=== PATIENT | female | born 1960 | race Caucasian/White ===

== ENCOUNTER 2020-09-18 09:00 | Emergency (ER) | payer OTHER, MEDICAID, SELFPAY ==
[2020-09-18] VITALS (11 sets, daily range): BP systolic 142–178; BP diastolic 66–77; PULSE 49–66; RESP 13–23; TEMP 36.6; O2SAT 95–98; BMI 33.3
[2020-09-18 09:45] LABS: Add Manual Diff / Slide Review NO; Basophils Absolute Auto 0 /uL (0-100); Basophils Percent Auto 0.4 % (0-2); Eosinophils Absolute Auto 100 /uL (0-450); Eosinophils Percent Auto 0.9 % (2-4); Hematocrit 45.6 % (36-46); Hemoglobin 15.5 g/dL (12.0-16.0); Lymphocytes Absolute Auto 3500 /uL (1100-4500); Lymphocytes Percent Auto 32.7 % (25-40); Mean Corpuscular Hemoglobin 30.6 PG (26-34); Mean Corpuscular Volume 89.9 fL (80-100); Monocytes Absolute Auto 1000 /uL (0-900); Monocytes Percent Auto 9.2 % (3-14); Neutrophils Absolute Auto 6100 /uL (1500-7000); Neutrophils Percent Auto 56.8 % (50-75); Platelet Count 286 X10^3/uL (150-400); Red Blood Cell Count 5.07 X10^6/uL (4.0-5.2); Red Cell Distribution Width 13.7 % (11.6-14.8); White Blood Cell Count 10.7 X10^3/uL (4.5-11.0)
[2020-09-18 09:46] LABS: INR 1.1 (0.9-1.3); Prothrombin Time 12.4 SECONDS (10.1-12.7)
[2020-09-18 09:48] LABS: PTT Partial Thromboplastin Tim 38 SECONDS (26.4-36.2)
[2020-09-18 09:50] LABS: Alanine Aminotransferase 22 IU/L (<35); Albumin 4.7 g/dL (3.5-5.0); Albumin Globulin Ratio 1.2 (1.0-2.8); Alkaline Phosphatase 82 U/L (38-126); Aspartate Aminotransferase 40 IU/L (14-36); BUN Creatinine Ratio 19.7 (6-22); Bilirubin Total 0.7 mg/dL (0.2-1.3); Blood Urea Nitrogen 12 mg/dL (7-17); Calcium 9.3 mg/dL (8.4-10.2); Carbon Dioxide 23 mmol/L (22-32); Chloride 110 mmol/L (98-107); Estimated Glomerular Filt Rate > 60.0 mL/min (>60); Glucose 101 mg/dL (70-100); Lipase 81 U/L (23-300); Potassium 4.4 mmol/L (3.4-5.1); Sodium 139 mmol/L (137-145); Total Protein 8.7 g/dL (6.3-8.2)
[2020-09-18 09:51] LABS: HEMOLYSIS 61 (0-50)
--- NOTE | 2020-09-18 09:51 | DI.US.S_ITS ---
PROCEDURE: US ABDOMEN LIMITED INDICATIONS: RUQ PAIN TECHNIQUE: Real-time scanning was performed of the abdominal and retroperitoneal organs, with image documentation. COMPARISON: None. FINDINGS: Liver: Within normal limits in size. Appears increased in echogenicity. Main portal vein is patent demonstrating expected hepatopetal flow and measuring 1 cm. Gallbladder: Nondilated. No stones or sludge. Normal gallbladder wall thickness. No pericholecystic fluid. Negative sonographic Mcmullen's sign. Biliary ducts: Intrahepatic bile ducts are non-dilated. Extrahepatic bile duct caliber measures 7-9 mm. Normal is 6-7 mm or less in diameter, or 10 mm or less post-cholecystectomy. Pancreas: Visualized portions of the pancreas are sonographically normal. No hydronephrosis of the right kidney. IMPRESSION: 1. No acute cholecystitis. No gallstones. 2. CBD appears prominent. 3. Suspect increased echogenicity of the liver. This could be due to hepatic steatosis or hepatocellular disease. Dictated by: Jax Villasenor M.D. on 09/18/2020 at 9:59 Approved by: Jax Villasenor M.D. on 09/18/2020 at 10:02
--- NOTE | 2020-09-18 10:09 | ED_ITS ---
HPI - Abdominal Pain General Chief Complaint: Abdominal Pain Stated Complaint: gall bladder is acting up Time Seen by Provider: 09/18/20 09:28 Source: patient Mode of arrival: Ambulatory Limitations: no limitations History of Present Illness HPI narrative: The patient is a 60-year-old female who presents with right upper quadrant pain for the last 3 days. She says the sharp stabbing radiates around to her back and up to her right shoulder. She has felt extremely nauseated no vomiting. She is having some mild right lower quadrant pain as well but she feels no flank pain or radiating to her groin. She denies any fever chills or cough. She actually started having diarrhea for about the past few days. No nbloody. She denies any recent antibiotic use or bad foods. is not sick. She tries to drink water but she feels like it goes right through her. MD complaint: abdominal pain Onset (ago): day(s) (3) Pain Consistency: intermittent Location: RUQ Severity: moderate Quality: stabbing Radiation: back and other (Right shoulder) Migration to: no migration Relieving factors: nothing Exacerbating factors: nothing Related Data Previous Rx's Medication Instructions Recorded ondansetron 4 mg PO Q8H PRN #10 tab 09/18/20 Allergies Allergy/AdvReac Type Severity Reaction Status Date / Time No Known Drug Allergies Allergy Verified 09/18/20 09:25 Review of Systems Review of Systems Narrative: GENERAL: Denies chills, fatigue, malaise, fever, sweats, travel HEENT: Denies sinus pain, ear pain, sore throat, difficulty swallowing, neck pain RESPIRATORY: Denies dyspnea, cough, wheezing, hemoptysis, sputum. CARDIOVASCULAR: Denies chest pain, palpitations, orthopnea, edema GASTROINTESTINAL: See HPI : Denies dysuria, frequency, incontinence, hematuria, urinary retention, flank pain. MUSCULOSKELETAL: Denies weakness, joint pain, or bony pain SKIN: No rash, no erythema, no pruritus NEUROLOGIC: Denies weakness, dizziness, headache, numbness, change in speech, confusion PSYCHIATRIC: No concerning psychosocial issues. 12 point review of systems is negative except for those stated above and HPI Patient History Social History Smoking Status: Never smoker Smoking Status: Never smoker alcohol intake frequency: 0-2 drinks per day Substance Use Type: marijuana Exam Initial Vital Signs Initial Vital Signs: Vital Signs Temperature 97.8 F 09/18/20 09:20 Pulse Rate 66 09/18/20 09:20 Respiratory Rate 14 09/18/20 09:20 Blood Pressure 142/76 H 09/18/20 09:20 Pulse Oximetry 97 09/18/20 09:20 GENERAL: Appears uncomfortable and in no acute distress. HEENT: Head atraumatic,EOMI, pupils reactive, face symmetric, moist mucous membranes CARDIOVASCULAR: Regular rate and rhythm without murmurs, rubs or gallops. RESPIRATORY: Breath sounds equal bilaterally, no wheezes rales or rhonchi. ABDOMEN: Soft, for mild right upper quadrant pain negative Mcmullen sign no guarding or rebound minimal right lower quadrant pain EXTREMITIES: Normal range of motion, no clubbing or edema. Neurovascularly intact NEUROLOGICAL: Alert and oriented x4.Normal gait and speech. SKIN: Warm, dry, no laceration, no petechiae, no rashes or lesions. Course Orders Ordered: ED Orders 09/18/20 09:25 Complete Blood Count AUTO DIFF Stat Comprehensive Metabolic Panel Stat Lipase Stat Partial Thromboplastin Time Stat Prothrombin Time INR Stat 09/18/20 09:51 US abdomen limited Stat 09/18/20 10:45 CT abdomen pelvis w con Stat Discontinued Medications Sodium Chloride (Normal Saline 0.9%) 1,000 mls @ 1,000 mls/hr IV BOLUS ONE Stop: 09/18/20 11:06 Last Admin: 09/18/20 10:17 Dose: 1,000 mls/hr Documented by: MYRANDA Ketorolac Tromethamine (Ketorolac 60 Mg/2 Ml Vial) 30 mg IV NOW ONE Stop: 09/18/20 10:08 Last Admin: 09/18/20 10:16 Dose: 30 mg Documented by: MYRANDA Ondansetron HCl (Ondansetron 4 Mg/2 Ml Inj) 4 mg IV NOW ONE Stop: 09/18/20 10:08 Last Admin: 09/18/20 10:16 Dose: 4 mg Documented by: MYRANDA Vital Signs Vital signs: Vital Signs - 8 hr 09/18/20 09:20 09/18/20 10:08 09/18/20 10:25 Temperature 97.8 F Pulse Rate 66 54 L 51 L Respiratory Rate 14 19 20 Blood Pressure 142/76 H 178/77 H Pulse Oximetry 97 97 09/18/20 10:30 09/18/20 11:12 09/18/20 11:30 Temperature Pulse Rate 49 L 55 L 60 Respiratory Rate 21 17 23 Blood Pressure Pulse Oximetry 96 96 97 09/18/20 12:00 09/18/20 12:11 Temperature Pulse Rate 52 L 63 Respiratory Rate 13 20 Blood Pressure 150/66 H Pulse Oximetry 98 98 MDM - Abdominal Pain Lab Data Attestation: I reviewed the patient's lab results. Result diagrams: 09/18/20 09:25 09/18/20 09:25 Labs: Lab Results 09/18/20 09/18/20 09/18/20 Range/Units 09:25 09:25 09:25 WBC 10.7 (4.5-11.0) X10^3/uL RBC 5.07 (4.0-5.2) X10^6/uL Hgb 15.5 (12.0-16.0) g/dL Hct 45.6 (36-46) % MCV 89.9 (80-100) fL MCH 30.6 (26-34) PG MCHC 34.0 (30-36) % RDW 13.7 (11.6-14.8) % Plt Count 286 (150-400) X10^3/uL Neut % (Auto) 56.8 (50-75) % Lymph % (Auto) 32.7 (25-40) % [place] % (Auto) 9.2 (3-14) % Eos % (Auto) 0.9 L (2-4) % Baso % (Auto) 0.4 (0-2) % Neut # (Auto) 6100 (5243-4398) /uL Lymph # (Auto) 3500 (8374-3870) /uL [place] # (Auto) 1000 H (0-900) /uL Eos # (Auto) 100 (0-450) /uL Baso # (Auto) 0 (0-100) /uL PT 12.4 (10.1-12.7) SECONDS INR 1.1 (0.9-1.3) APTT 38 H (26.4-36.2) SECONDS Sodium 139 (137-145) mmol/L Potassium 4.4 (3.4-5.1) mmol/L Chloride 110 H (98-107) mmol/L Carbon Dioxide 23 (22-32) mmol/L BUN 12 (7-17) mg/dL Creatinine 0.61 (0.52-1.04) mg/dL Estimated GFR > 60.0 (>60) mL/min BUN/Creatinine Ratio 19.7 (6-22) Glucose 101 H (70-100) mg/dL Calcium 9.3 (8.4-10.2) mg/dL Total Bilirubin 0.7 (0.2-1.3) mg/dL AST 40 H (14-36) IU/L ALT 22 (<35) IU/L Alkaline Phosphatase 82 (38-126) U/L Total Protein 8.7 H (6.3-8.2) g/dL Albumin 4.7 (3.5-5.0) g/dL Globulin 4.0 (1.7-4.1) g/dL Albumin/Globulin Ratio 1.2 (1.0-2.8) Lipase 81 (23-300) U/L Point of care testing: Urine Dip Bedside Urine Glucose Negative Bedside Urine Bilirubin - Negative Bedside Urine Ketone +/- 5 Urine Specific [place] 1.005 Bedside Urine Occult Blood +/- Bedside Urine pH 5.0 Bedside Urine Protein +/- 15 Bedside Urine Urobilinogen - Negative Bedside Urine Nitrite - Negative Bedside Urine Leukocytes - Negative Esterase Imaging Data CT scan - abdomen/pelvis: Radiologist's Impression: PROCEDURE: CT ABDOMEN PELVIS W CON INDICATIONS: right sided ab pain TECHNIQUE: After the administration of intravenous contrast, 5 mm thick sections acquired from the diaphragm to the symphysis. 5 mm coronal and sagittal reformats were acquired. For radiation dose reduction, the following was used: automated exposure control, adjustment of mA and/or kV according to patient size. COMPARISON: [facility], , US ABDOMEN LIMITED, 09/18/2020, 10:31. FINDINGS: Image quality: Excellent. ABDOMEN: Lung bases: Lung bases are clear. Heart size is normal. Solid organs: Liver is normal in size. A few well-circumscribed hypodense foci which are most compatible with benign cyst or hemangioma. Calcified granuloma in the right lobe. Gallbladder is unremarkable. No intrahepatic biliary ductal dilatation. The CBD measures 0.8 cm, (4/29), and tapers distally. Pancreas enhances normally. Pancreatic duct is within normal limits. Spleen is normal in size and enhancement. Calcified granuloma. No adrenal nodules. Kidneys demonstrate normal size and enhancement, without hydronephrosis. Small simple cysts in the right kidney. A few cortical hypodensities bilaterally which are too small to further characterize. Peritoneum and bowel: The stomach is not distended. Loop of proximal jejunum demonstrating circumferential wall thickening, (2/35). The loop is mildly dilated. No transition point is demonstrated. There may be edema in the adjacent mesentery. No loculated fluid collection. There is liquid stool contents in the distal colon which could be seen in diarrhea. The appendix is normal in caliber. No free fluid or air. Nodes and vessels: No retroperitoneal or mesenteric adenopathy by size criteria. Small mesenteric calcification in the left pelvis. Aorta and inferior vena cava are normal in size. Mild atherosclerotic plaque. Miscellaneous: No ventral hernias. PELVIS: Genitourinary: Bladder is decompressed limiting evaluation. The uterus is vertically oriented. No free fluid in the pelvis. Miscellaneous: No inguinal hernias or adenopathy. Bones: No suspicious bony lesions. Suspect mild scoliosis. No vertebral body compression fractures. IMPRESSION: 1. There is a loop of proximal jejunum which is mildly dilated and thickened. This could be seen in an enteritis. 2. There is liquid stool contents in the distal colon which could be seen in diarrhea. 3. No loculated fluid collection. No pneumoperitoneum. No small bowel obstruction. 4. Normal appendix. Dictated by: Jax Villasenor M.D. on 09/18/2020 at 10:45 US - abdomen: Radiologist's Impression: PROCEDURE: US ABDOMEN LIMITED INDICATIONS: RUQ PAIN TECHNIQUE: Real-time scanning was performed of the abdominal and retroperitoneal organs, with image documentation. COMPARISON: None. FINDINGS: Liver: Within normal limits in size. Appears increased in echogenicity. Main portal vein is patent demonstrating expected hepatopetal flow and measuring 1 cm. Gallbladder: Nondilated. No stones or sludge. Normal gallbladder wall thickness. No pericholecystic fluid. Negative sonographic Mcmullen's sign. Biliary ducts: Intrahepatic bile ducts are non-dilated. Extrahepatic bile duct caliber measures 7-9 mm. Normal is 6-7 mm or less in diameter, or 10 mm or less post-cholecystectomy. Pancreas: Visualized portions of the pancreas are sonographically normal. No hydronephrosis of the right kidney. IMPRESSION: 1. No acute cholecystitis. No gallstones. 2. CBD appears prominent. 3. Suspect increased echogenicity of the liver. This could be due to hepatic steatosis or hepatocellular disease. Dictated by: Jax Villasenor M.D. on 09/18/2020 at 9:59 Approved by: Jax Villasenor M.D. on 09/18/2020 at 10:0 MDM Narrative Medical decision making narrative: Patient is feeling nauseated with frequent episodes of diarrhea and abdominal pain. Symptoms consistent with gastroenteritis. Blood work and imaging her overall reassuring discussed rehydration technique when to return to ED. Discharge Plan Departure Patient Disposition: Home Clinical Impression: Gastroenteritis Abdominal pain Qualifiers: Abdominal location: generalized Qualified Code(s): R10.84 - Generalized abdominal pain Instructions: DI for Viral Gastroenteritis -- Adult Activity Restrictions/Additional Instructions: *You have been diagnosed with abdominal pain *What to do: At this time gallbladder and kidneys he not show any abnormality blood work is reassuring. You likely have a virus that can cause nausea sometimes vomiting and sometimes diarrhea. This usually resolves on its own. Increase intake as tolerated *Continue to take medications as directed Zofran 4 mg every 8 hours if needed for nausea or vomiting *Follow up with your primary care provider in 2-3 days *Return to ER if you should have worsening pain, persistent vomiting or any new, worsening or concerning symptoms Prescriptions: New ondansetron 4 mg tablet,disintegrating 4 mg PO Q8H PRN (Reason: nausea and vomiting) Qty: 10 RF: 0 Referrals: Jina Almonte MD [Primary Care Provider] -
[2020-09-18] MEDS: ONDANSETRON 4 MG/2 ML INJ IV (10:16)
[2020-09-18] MEDS: KETOROLAC 60 MG/2 ML VIAL 30 MG IV (10:16)
[2020-09-18] MEDS: SODIUM CHLORIDE 0.9% 1,000 ML 1000 ML IV (10:17)
--- NOTE | 2020-09-18 10:45 | DI.CT.S_ITS ---
PROCEDURE: CT ABDOMEN PELVIS W CON INDICATIONS: right sided ab pain TECHNIQUE: After the administration of intravenous contrast, 5 mm thick sections acquired from the diaphragm to the symphysis. 5 mm coronal and sagittal reformats were acquired. For radiation dose reduction, the following was used: automated exposure control, adjustment of mA and/or kV according to patient size. COMPARISON: [facility], , US ABDOMEN LIMITED, 09/18/2020, 10:31. FINDINGS: Image quality: Excellent. ABDOMEN: Lung bases: Lung bases are clear. Heart size is normal. Solid organs: Liver is normal in size. A few well-circumscribed hypodense foci which are most compatible with benign cyst or hemangioma. Calcified granuloma in the right lobe. Gallbladder is unremarkable. No intrahepatic biliary ductal dilatation. The CBD measures 0.8 cm, (4/29), and tapers distally. Pancreas enhances normally. Pancreatic duct is within normal limits. Spleen is normal in size and enhancement. Calcified granuloma. No adrenal nodules. Kidneys demonstrate normal size and enhancement, without hydronephrosis. Small simple cysts in the right kidney. A few cortical hypodensities bilaterally which are too small to further characterize. Peritoneum and bowel: The stomach is not distended. Loop of proximal jejunum demonstrating circumferential wall thickening, (2/35). The loop is mildly dilated. No transition point is demonstrated. There may be edema in the adjacent mesentery. No loculated fluid collection. There is liquid stool contents in the distal colon which could be seen in diarrhea. The appendix is normal in caliber. No free fluid or air. Nodes and vessels: No retroperitoneal or mesenteric adenopathy by size criteria. Small mesenteric calcification in the left pelvis. Aorta and inferior vena cava are normal in size. Mild atherosclerotic plaque. Miscellaneous: No ventral hernias. PELVIS: Genitourinary: Bladder is decompressed limiting evaluation. The uterus is vertically oriented. No free fluid in the pelvis. Miscellaneous: No inguinal hernias or adenopathy. Bones: No suspicious bony lesions. Suspect mild scoliosis. No vertebral body compression fractures. IMPRESSION: 1. There is a loop of proximal jejunum which is mildly dilated and thickened. This could be seen in an enteritis. 2. There is liquid stool contents in the distal colon which could be seen in diarrhea. 3. No loculated fluid collection. No pneumoperitoneum. No small bowel obstruction. 4. Normal appendix. Dictated by: Jax Villasenor M.D. on 09/18/2020 at 10:45 Approved by: Jax Villasenor M.D. on 09/18/2020 at 10:53
== END 2020-09-18 13:33 | disposition home or self-care (01) ==
PROVIDERS: Emergency Provider Emergency Medicine; PCP Family Medicine
DX: K52.9 Noninfective gastroenteritis and colitis, unspecified (principal); R10.84 Generalized abdominal pain; R11.0 Nausea
CPT/HCPCS: 36415; 74177; 76705; 80053; 81003; 83690; 85025; 85610; 85730; 93005; 96361; 96374; 96375; 99283; 99284; J1885; J2405; Q9967